=== PATIENT | male | born 1995 | race African-American/Black ===

== ENCOUNTER 2025-07-12 11:50 | Emergency (ER) | payer MEDICAID, SELFPAY ==
[2025-07-12] MEDS ORDERED: Lidocaine 1% (PF) 30 ML VIAL ONE (12:49)
[2025-07-12] MEDS ORDERED: Boostrix 0.5 ML (Tdap) VIAL (>/=7 yrs of age) ONE (12:49)
== END 2025-07-12 13:36 | disposition home or self-care (01) ==
LOC: CSHERS 11:50
DX: L03.031 Cellulitis of right toe (principal); Z23 Encounter for immunization
CPT/HCPCS: 10060; 90471; 90715